=== PATIENT | female | born 1980 | race Caucasian/White ===

== ENCOUNTER 2020-01-23 12:50 | Emergency (ER) | payer SELFPAY ==
--- NOTE | 2020-01-23 13:21 | RAD ---
XR Foot Lt 3 View STANDARD History: Fall. Arthropathy Comparison: None. Findings: Abnormal widening of the Lisfranc interval osseous debris along the expected location Lisfr anc ligament. There is necrosis of the medial cuneiform. Old fracture of the second and third metatarsal necks with necrosis of the third metatarsal head. Fra cture with healing of the second toe proximal phalanx base with a nonunion dorsal intra-articular fracture. There is midfoot collapse with abnormal plantar migration of the medial arch. Extensive soft tissue swelling. Impression: Extensive numerous chronic findings without definite acute osseous abnormality.
--- NOTE | 2020-01-23 13:26 | RAD ---
LEFT ANKLE 3 VIEWS: HISTORY: Arthropathy, fall, left ankle pain. FINDINGS/IMPRESSION: No acute fracture or dislocation is seen. The ankle mortise is maintained. Soft tissue swelling is present. 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 POS: OFF
[2020-01-23] MEDS ORDERED: Ketorolac Tromethamine 30 MG/ML VIAL ONE (14:10)
== END 2020-01-23 14:43 | disposition home or self-care (01) ==
LOC: ERS 12:50
DX: M79.672 Pain in left foot (principal); M25.472 Effusion, left ankle; E11.9 Type 2 diabetes mellitus without complications; M79.7 Fibromyalgia; F31.9 Bipolar disorder, unspecified; F90.9 Attention-deficit hyperactivity disorder, unspecified type; F43.10 Post-traumatic stress disorder, unspecified; Z79.4 Long term (current) use of insulin; Z79.899 Other long term (current) drug therapy
CPT/HCPCS: 96372; J1885

== ENCOUNTER 2020-02-24 10:26 | Emergency (ER) | payer SELFPAY | END 2020-02-24 12:10 | disposition home or self-care (01) | LOC: ERS 10:26 | DX: S90.411A Abrasion, right great toe, initial encounter (principal); E11.9 Type 2 diabetes mellitus without complications; F31.9 Bipolar disorder, unspecified; F90.9 Attention-deficit hyperactivity disorder, unspecified type; F43.10 Post-traumatic stress disorder, unspecified; M79.7 Fibromyalgia | CPT/HCPCS: 99282 ==

== ENCOUNTER 2020-02-26 11:00 | Emergency (ER) | payer SELFPAY | END 2020-02-26 12:29 | disposition home or self-care (01) | LOC: ERS 11:00 | DX: Z76.0 Encounter for issue of repeat prescription (principal); E11.9 Type 2 diabetes mellitus without complications; M06.9 Rheumatoid arthritis, unspecified; F31.9 Bipolar disorder, unspecified; F90.9 Attention-deficit hyperactivity disorder, unspecified type; Z79.899 Other long term (current) drug therapy; Z79.4 Long term (current) use of insulin | CPT/HCPCS: 99281 ==